=== PATIENT | female | born 1985 | race Caucasian/White ===

== ENCOUNTER 2016-07-14 09:04 | Inpatient (IN) | payer BC ==
[~2016-07-14] VITALS: Ht 165.1 cm; Wt 114.8 kg
[2016-07-14] VITALS (21 sets, daily range): BP systolic 106–141; BP diastolic 55–89
[2016-07-14 10:23] LABS: EOSINOPHIL (%) 0.6 % (0-5); EOSINOPHIL COUNT 0.1 K/uL (0-0.3); HEMATOCRIT 33.8 % (36.0-46.0); IMMATURE GRANULOCYTE (%) 0.7 % (0.0-0.7); IMMATURE GRANULOCYTE COUNT 0.8 K/uL; LYMPHOCYTE COUNT 1.4 K/uL (1.0-2.8); MCH 28.2 PG (29.0-34.0); MCHC 32.8 G/DL (30.0-36.0); MCV 85.8 FL (83-99); MEAN PLAT.VOLUME 9.9 uM^3 (9.5-12.4); MONOCYTE (%) 4.3 % (3-12); MONOCYTE COUNT 0.5 K/uL (0-0.8); NEUTROPHIL (%) 82.1 % (45-76); NEUTROPHIL COUNT 9.3 K/uL (1.8-6.4); PLATELET COUNT 380 K/uL (156-360); RBC DIS.WIDTH-CV 12.8 % (11.8-14.6); RBC DIS.WIDTH-SD 39.1 % (39-53); RED BLOOD COUNT 3.94 M/uL (3.80-5.20); WHITE BLOOD COUNT 11.3 K/uL (4.1-10.2)
[2016-07-14] MEDS ORDERED: PRENATABS RX T1 EACH PO (13:12)
[2016-07-14] MEDS ORDERED: ZOLOFT100 MG PO (13:13)
[2016-07-14] MEDS ORDERED: MOTRIN800 MG PO (16:31)
[2016-07-15 07:59] VITALS: BP 116/80
[2016-07-15 15:40] VITALS: BP 133/83
[2016-07-15 22:29] VITALS: BP 131/83
[2016-07-16 08:16] VITALS: BP 129/81
== END 2016-07-16 14:00 | disposition home or self-care (01) | DRG 775 ==
LOC: LDRP-OP 09:04 → 2WEST 09:05 → LDRP-OP 08-21 10:23
PROVIDERS: Obstetrics & Gynecology
PROC: 00HU33Z Insertion of Infusion Device into Spinal Canal, Percutaneous Approach (ICD-10-PCS; principal; 2016-07-14)
PROC: 10E0XZZ Delivery of Products of Conception, External Approach (ICD-10-PCS; principal; 2016-07-14)
PROC: 10907ZC Drainage of Amniotic Fluid, Therapeutic from Products of Conception, Via Natural or Artificial Opening (ICD-10-PCS; principal; 2016-07-14)
PROC: 3E0R3CZ (ICD-10-PCS; principal; 2016-07-14)
DX: O99.824 Streptococcus B carrier state complicating childbirth (principal); Z68.41 Body mass index [BMI] 40.0-44.9, adult; O99.344 Other mental disorders complicating childbirth; E66.9 Obesity, unspecified; O99.214 Obesity complicating childbirth; Z3A.38 38 weeks gestation of pregnancy; Z37.0 Single live birth
CPT/HCPCS: 85025; C1755; J0595; J2540; J2795; J3010; J7120